=== PATIENT | male | born 2000 | race Caucasian/White ===

== ENCOUNTER 2023-02-17 14:32 | Emergency (ER) | payer OTHER ==
[~2023-02-17] VITALS: Ht 187 cm; Wt 82.0 kg
--- NOTE | 2023-02-17 15:01 | ED Abdominal Pain ---
General Chief Complaint: Abdominal/GI Problems Stated Complaint: ABD PAIN Nursing Triage Note: PT CO OF PAIN UNDER R RIB AREA. STARTED 3 DAYS AGO. PT STATES HURTS WHEN TAKES A DEEP BREATH. RATES PAIN 7/10 ON DEEP BREATH Source of Information: Patient Exam Limitations: No Limitations (YOUNG FRANCO APRN) History of Present Illness Date Seen by Provider: Feb 17, 2023 Time Seen by Provider: 14:50 Initial Comments 22-year-old male presents to the ER with complaints of pain under his right ribs for the last 3 days. States the pain is mostly constant, but much worse when he takes a deep breath or when he yawns or sneezes. He states the pain has become worse over the last 3 days. He also complains of intermittent burning in his epigastric/sternal region. He states that he does not think his pain is related to eating. Reports some nausea, none currently. Denies vomiting, fever, dysuria, hematuria. Last bowel movement was last night states it was kind of loose. (YOUNG FRANCO APRN) Allergies and Home Medications Allergies Coded Allergies: No Known Drug Allergies (Unverified , 02/17/23) Patient Home Medication List Home Medication List Reviewed: Yes (YOUNG FRANCO APRN) Review of Systems Review of Systems Constitutional: see HPI (YOUNG FRANCO APRN) Past Iwptzmg-Iekxbi-Qmmrmi Hx Patient Social History Tobacco Use?: No Substance use?: No Alcohol Use?: No Pt feels they are or have been: No (YOUNG FRANCO APRN) Immunizations Up To Date First/Initial COVID19 Vaccinat: YES Second COVID19 Vaccination Juventino: YES (YOUNG FRANCO APRN) Past Medical History Surgery/Hospitalization HX: DENIES (YOUNG FRANCO APRN) Physical Exam Vital Signs Vital Signs - First Documented 02/17/23 02/17/23 14:40 18:09 Temp 36.8 Pulse 67 Resp 18 B/P (MAP) 128/86 (100) Pulse Ox 97 O2 Delivery Room Air (KENNY HENAO MD) Vital Signs Capillary Refill : Less Than 3 Seconds (YOUNG FRANCO APRN) Height/Weight/BMI Height: '" Weight: lbs. oz. kg; 23.00 BMI Method: General Appearance: WD/WN, no apparent distress Neck: supple, normal inspection Respiratory: lungs clear, normal breath sounds, no respiratory distress, no accessory muscle use Cardiovascular: regular rate, rhythm Gastrointestinal: normal bowel sounds, non tender, soft Extremities: normal range of motion, normal inspection Neurologic/Psychiatric: alert, normal mood/affect Skin: normal color, warm/dry (YOUNG FRANCO APRN) Progress/Results/Core Measures Results/Orders Lab Results Laboratory Tests Test 02/17/23 15:09 02/17/23 15:41 Range/Units White Blood Count 6.6 4.3-11.0 10^3/uL Red Blood Count 5.22 4.30-5.52 10^6/uL Hemoglobin 15.4 13.3-17.7 g/dL Hematocrit 42 40-54 % Mean Corpuscular Volume 80 80-99 fL Mean Corpuscular Hemoglobin 30 25-34 pg Mean Corpuscular Hemoglobin Concent 37 H 32-36 g/dL Red Cell Distribution Width 11.8 10.0-14.5 % Platelet Count 208 130-400 10^3/uL Mean Platelet Volume 9.6 9.0-12.2 fL Immature Granulocyte % (Auto) 0 % Neutrophils (%) (Auto) 65 42-75 % Lymphocytes (%) (Auto) 26 12-44 % Monocytes (%) (Auto) 7 0-12 % Eosinophils (%) (Auto) 2 0-10 % Basophils (%) (Auto) 1 0-10 % Neutrophils # (Auto) 4.3 1.8-7.8 10^3/uL Lymphocytes # (Auto) 1.7 1.0-4.0 10^3/uL Monocytes # (Auto) 0.5 0.0-1.0 10^3/uL Eosinophils # (Auto) 0.1 0.0-0.3 10^3/uL Basophils # (Auto) 0.1 0.0-0.1 10^3/uL Immature Granulocyte # (Auto) 0.0 0.0-0.1 10^3/uL Sodium Level 141 135-145 MMOL/L Potassium Level 4.1 3.6-5.0 MMOL/L Chloride Level 105 98-107 MMOL/L Carbon Dioxide Level 29 21-32 MMOL/L Anion Gap 7 5-14 MMOL/L Blood Urea Nitrogen 12 7-18 MG/DL Creatinine 1.01 0.60-1.30 MG/DL Estimat Glomerular Filtration Rate 109 BUN/Creatinine Ratio 12 Glucose Level 83 70-105 MG/DL Calcium Level 10.2 H 8.5-10.1 MG/DL Corrected Calcium 8.5-10.1 MG/DL Total Bilirubin 3.1 H 0.1-1.0 MG/DL Aspartate Amino Transf (AST/SGOT) 20 5-34 U/L Alanine Aminotransferase (ALT/SGPT) 24 0-55 U/L Alkaline Phosphatase 77 40-136 U/L Total Protein 7.3 6.4-8.2 GM/DL Albumin 4.7 H 3.2-4.5 GM/DL Amylase Level 69 25-125 U/L Lipase 28 8-78 U/L Urine Color YELLOW Urine Clarity CLOUDY Urine pH 6.0 5-9 Urine Specific [place] 1.020 1.016-1.022 Urine Protein NEGATIVE NEGATIVE Urine Glucose (UA) NEGATIVE NEGATIVE Urine Ketones NEGATIVE NEGATIVE Urine Nitrite NEGATIVE NEGATIVE Urine Bilirubin NEGATIVE NEGATIVE Urine Urobilinogen 1.0 < = 1.0 MG/DL Urine Leukocyte Esterase NEGATIVE NEGATIVE Urine RBC (Auto) NEGATIVE NEGATIVE Urine RBC NONE /HPF Urine WBC NONE /HPF Urine Crystals PRESENT H /LPF Urine Amorphous Sediment MOD KELI URATES H /LPF Urine Bacteria NEGATIVE /HPF Urine Casts NONE /LPF Urine Mucus NEGATIVE /LPF Urine Culture Indicated NO (KENNY HENAO MD) Vital Signs/I&O 02/17/23 02/17/23 14:40 18:09 Temp 36.8 36.8 Pulse 67 61 Resp 18 18 B/P (MAP) 128/86 (100) 120/76 Pulse Ox 97 99 O2 Delivery Room Air (KENNY HENAO MD) Blood Pressure Mean: 100 Progress Progress Note : Progress Note Patient seen and evaluated, resting comfortably in bed, no acute distress. Based on exam and symptoms, work-up initiated including CBC, CMP, amylase, lipase, UA, acute abdominal series, chest x-ray. 1610 labs and imaging reviewed. CBC grossly normal, CMP shows elevated total b ilirubin at 3.1 and elevated albumin 4.7. Amylase and lipase normal. Chest x-ray and abdominal x-ray negative for acute abnormalities. Gallbladder US ordered for elevated bilirubin and RUQ pain. GI cocktail ordered. 1750 US reviewed. Negative for acute cholecystitis or other acute abnormalities. Results discussed with patient. Patient denies improvement of pain with GI cocktail. I think this is muscular inflammation of the chest wall since pain is worse with inspiration. Instructed patient to try ibuprofen for pain. Discharge instructions and return precautions provided. (YOUNG FRANCO APRN) Diagnostic Imaging Diagonstic Imaging: Xray Plain Films/CT/US/NM/MRI: abdomen Comments [facility], [facility]. [place], [place] NAME: MILIND FERNANDES [facility] REC#: [id number] PT STATUS: DEP ER : 2000 PHYSICIAN: YOUNG FRANCO APRN ADMIT DATE: 02/17/23/ER Signed Date of Exam:02/17/23 ABDOMEN, FLAT & UPRIGHT/DECUB INDICATION: Right upper quadrant abdominal pain. COMPARISON: None FINDINGS: Supine and upright views the abdomen demonstrate nonobstructive small bowel gas pattern. Mild amount of air and stool are seen scattered throughout the colon. No abnormal air-fluid levels or large collection of free intraperitoneal air is seen. No abnormal extraosseous calcifications or radiopaque foreign bodies are identified. Bony structures are age-appropriate. IMPRESSION: 1. Nonobstructive small bowel gas pattern. Dictated by: Dictated on workstation # [id number] Dict: 02/17/23 1523 Trans: 02/18/23 0807 CVB [id number] Interpreted by: JONI PETERSEN MD Electronically signed by: JONI PETERSEN MD 02/18/23 0807 Diagonstic Imaging: Xray Plain Films/CT/US/NM/MRI: chest Comments [facility], [facility]. [place], [place] NAME: MILIND FERNANDES [facility] REC#: [id number] PT STATUS: DEP ER : 2000 PHYSICIAN: YOUNG FRANCO APRN ADMIT DATE: 02/17/23/ER Signed Date of Exam:02/17/23 CHEST PA/LAT (2 VIEW) INDICATION: pain with deep breaths COMPARISON: None FINDINGS: Frontal and lateral views of the chest demonstrate normal heart size and pulmonary vascularity. The lungs are clear. There are no signs of infiltrate, pleural effusions or pneumothoraces. The visualized osseous structures show no acute abnormalities. IMPRESSION: 1. No acute process. No signs of infiltrates, effusions or pneumothoraces. Dictated by: Dictated on workstation # [id number] Dict: 02/17/23 1522 Trans: 02/18/2308 CVB [id number] Interpreted by: JONI PETERSEN MD Electronically signed by: JONI PETERSEN MD 02/18/23 0808 Diagonstic Imaging: Ultrasound Plain Films/CT/US/NM/MRI: abdomen Comments [facility] [place], [place] NAME: MILIND FERNANDES [facility] REC#: [id number] PT STATUS: DEP ER : 2000 PHYSICIAN: YOUNG FRANCO APRN ADMIT DATE: 02/17/23/ER Signed Date of Exam:02/17/23 US GALLBLADDER [id number] PROCEDURE: US Gallbladder. TECHNIQUE: Multiple real-time grayscale images were obtained over the right upper quadrant in various projections. INDICATION: Right upper quadrant abdominal pain. COMPARISON: None. FINDINGS: The liver is normal in size, shape and echo texture. There are no focal lesions. Portal vein shows normal hepatopetal flow. No intra or extrahepatic biliary dilatation is present. The common bile duct is not dilated and measures 3 mm. There is no evidence of cholelithiasis, gallbladder wall thickening, or pericholecystic fluid. The visualized portions of the head and proximal body of the pancreas are within normal limits. The distal body and tail of the pancreas are not visualized due to overlying bowel gas. There is no ascites. The right kidney measures approximately 10.7 cm in length and has a normal appearance. The visualized portions of the IVC and aorta are normal. IMPRESSION: No cholelithiasis or sonographic evidence of acute cholecystitis. Negative liver/gallbladder sonogram. Dictated by: Dictated on workstation # [id number] Dict: 02/17/23 1731 Trans: 02/18/2311 AS6 [id number] Interpreted by: JONI PETERSEN MD Electronically signed by: JONI PETERSEN MD 02/18/23 0811 (YOUNG FRANCO APRN) Departure Impression Primary Impression: Chest wall pain Disposition: HOME, SELF-CARE Condition: Stable Departure-Patient Inst. Decision time for Depature: 17:56 (YOUNG FRANCO APRN) Referrals: ALVIN BENNETT MD (PCP/Family) Primary Care Physician Patient Instructions: Severe Abdominal Pain, Adult (DC) Add. Discharge Instructions: This pain may be due to inflammation of the muscles of your chest wall. You should try taking 800 mg of ibuprofen every 8 hours with food as needed for pain. You can also take 1000 mg of Tylenol every 8 hours as needed for pain. Follow-up with your primary care provider if symptoms continue. Return for severe pain, fever, recurrent vomiting, or any other new, concerning, or worsening symptoms. All discharge instructions reviewed with patient and/or family. Voiced understanding. ATTENDING PHYSICIAN NOTE: I was physically present as attending physician in the emergency department during the care of this patient, but I was not directly involved in the decision making or delivery of care for this patient. (KENNY HENAO MD) YOUNG FRANOC APRN Feb 17, 2023 15:01 KENNY HENAO MD Feb 21, 2023 13:35
[2023-02-17 15:11] LABS: BASOPHILS # (AUTO) 0.1 10^3/uL (0.0-0.1); BASOPHILS % (AUTO) 1 % (0-10); EOSINOPHILS # (AUTO) 0.1 10^3/uL (0.0-0.3); EOSINOPHILS % (AUTO) 2 % (0-10); HEMATOCRIT 42 % (40-54); HEMOGLOBIN 15.4 g/dL (13.3-17.7); LYMPHOCYTES # (AUTO) 1.7 10^3/uL (1.0-4.0); LYMPHOCYTES % (AUTO) 26 % (12-44); MEAN CORPUSCULAR HEMOGLOBIN 30 pg (25-34); MEAN CORPUSCULAR HGB CONC 37 g/dL (32-36); MEAN CORPUSCULAR VOLUME 80 fL (80-99); MEAN PLATELET VOLUME 9.6 fL (9.0-12.2); MONOCYTES # (AUTO) 0.5 10^3/uL (0.0-1.0); MONOCYTES % (AUTO) 7 % (0-12); NEUTROPHILS # (AUTO) 4.3 10^3/uL (1.8-7.8); NEUTROPHILS % (AUTO) 65 % (42-75); PLATELET COUNT 208 10^3/uL (130-400); WHITE BLOOD COUNT 6.6 10^3/uL (4.3-11.0)
--- NOTE | 2023-02-17 15:24 | Diagnostic Imaging Report ---
INDICATION: pain with deep breaths COMPARISON: None FINDINGS: Frontal and lateral views of the chest demonstrate normal heart size and pulmonary vascularity. The lungs are clear. There are no signs of infiltrate, pleural effusions or pneumothoraces. The visualized osseous structures show no acute abnormalities. IMPRESSION: 1. No acute process. No signs of infiltrates, effusions or pneumothoraces. Dictated by: Dictated on workstation # [id number]
--- NOTE | 2023-02-17 15:24 | Diagnostic Imaging Report ---
INDICATION: Right upper quadrant abdominal pain. COMPARISON: None FINDINGS: Supine and upright views the abdomen demonstrate nonobstructive small bowel gas pattern. Mild amount of air and stool are seen scattered throughout the colon. No abnormal air-fluid levels or large collection of free intraperitoneal air is seen. No abnormal extraosseous calcifications or radiopaque foreign bodies are identified. Bony structures are age-appropriate. IMPRESSION: 1. Nonobstructive small bowel gas pattern. Dictated by: Dictated on workstation # [id number]
[2023-02-17 15:27] LABS: ALBUMIN 4.7 GM/DL (3.2-4.5); CHLORIDE 105 MMOL/L (98-107); POTASSIUM 4.1 MMOL/L (3.6-5.0); SODIUM 141 MMOL/L (135-145)
[2023-02-17 15:28] LABS: AMYLASE 69 U/L (25-125); CALCIUM 10.2 MG/DL (8.5-10.1)
[2023-02-17 15:29] LABS: GLUCOSE 83 MG/DL (70-105); TOTAL PROTEIN 7.3 GM/DL (6.4-8.2)
[2023-02-17 15:30] LABS: CARBON DIOXIDE 29 MMOL/L (21-32)
[2023-02-17 15:31] LABS: BILIRUBIN,TOTAL 3.1 MG/DL (0.1-1.0)
[2023-02-17 15:33] LABS: ALKALINE PHOSPHATASE 77 U/L (40-136); CREATININE SERUM 1.01 MG/DL (0.60-1.30); GFR ESTIMATED 109
[2023-02-17 15:34] LABS: BUN/CREATININE RATIO 12
[2023-02-17 15:36] LABS: ALANINE AMINOTRANSFERASE 24 U/L (0-55); LIPASE 28 U/L (8-78)
[2023-02-17 15:44] LABS: BILIRUBIN,URINE NEGATIVE (NEGATIVE); CLARITY,URINE CLOUDY; COLOR,URINE YELLOW; GLUCOSE, URINE (UA) NEGATIVE (NEGATIVE); KETONES,URINE NEGATIVE (NEGATIVE); LEUKOCYTE ESTERASE ,URINE NEGATIVE (NEGATIVE); NITRITE,URINE NEGATIVE (NEGATIVE); PROTEIN,URINE NEGATIVE (NEGATIVE)
[2023-02-17] MEDS ORDERED: ANTACID SUSP 30 ML UDC (MYLANTA) PO ONE (16:00)
[2023-02-17] MEDS ORDERED: LIDOCAINE 2% VISCOUS 15 ML UDC PO ONE (16:00)
[2023-02-17 16:02] LABS: AMORPHOUS SEDIMENT,UR MOD AMOR URATES /LPF; BACTERIA,URINE NEGATIVE /HPF
--- NOTE | 2023-02-17 17:34 | Diagnostic Imaging Report ---
PROCEDURE: US Gallbladder. TECHNIQUE: Multiple real-time grayscale images were obtained over the right upper quadrant in various projections. INDICATION: Right upper quadrant abdominal pain. COMPARISON: None. FINDINGS: The liver is normal in size, shape and echo texture. There are no focal lesions. Portal vein shows normal hepatopetal flow. No intra or extrahepatic biliary dilatation is present. The common bile duct is not dilated and measures 3 mm. There is no evidence of cholelithiasis, gallbladder wall thickening, or pericholecystic fluid. The visualized portions of the head and proximal body of the pancreas are within normal limits. The distal body and tail of the pancreas are not visualized due to overlying bowel gas. There is no ascites. The right kidney measures approximately 10.7 cm in length and has a normal appearance. The visualized portions of the IVC and aorta are normal. IMPRESSION: No cholelithiasis or sonographic evidence of acute cholecystitis. Negative liver/gallbladder sonogram. Dictated by: Dictated on workstation # [id number]
[2023-02-17 18:09] VITALS: BP 120/76
== END 2023-02-17 18:08 | disposition home or self-care (01) ==
LOC: EDUNIT# 14:32 → ER 14:35
DX: R07.89 Other chest pain (principal); E80.7 Disorder of bilirubin metabolism, unspecified; R10.11 Right upper quadrant pain; R77.0 Abnormality of albumin
CPT/HCPCS: 36415; 71046; 74019; 76705; 80053; 81000; 82150; 83690; 85025